=== PATIENT | female | born 1935 | race African-American/Black ===

== ENCOUNTER 2021-11-28 11:56 | Outpatient (CLI) | payer MEDICARE, MEDICAID ==
[2021-11-29 00:41] LABS: SARS-CoV-2 PCR by NAA Not Detected (NotDetected)
== END 2021-11-28 11:57 | disposition home or self-care (01) ==
LOC: CSHLAB 11:56
PROVIDERS: ATTEND Internal Medicine Gastroenterology
DX: Z20.822 Contact with and (suspected) exposure to COVID-19 (principal); K63.5 Polyp of colon
CPT/HCPCS: U0003; U0005

== ENCOUNTER 2021-12-01 08:34 | Day surgery (SDC) | payer MEDICARE, MEDICAID ==
[2021-12-01 08:45] VITALS: BMI 24.5
[2021-12-01] MEDS ORDERED: Lidocaine 1% MPF 2 ML VIAL ONE (08:59)
[2021-12-01] MEDS ORDERED: PROPOFOL 40 ML ONE (09:49)
[2021-12-01] MEDS ORDERED: Lidocaine 1% PF 5 ML VIAL ONE (10:12)
[2021-12-01] MEDS ORDERED: Lidocaine 2% MPF 10 ML AMP (For Epidural Use) ONE (10:12)
[2021-12-01] MEDS ORDERED: Glycopyrrolate 0.2 MG/ML 5 ML SYRINGE ONE (10:47)
== END 2021-12-01 11:06 | disposition home or self-care (01) ==
LOC: CSHSDC 08:34
PROVIDERS: ATTEND Internal Medicine Gastroenterology
PROC: 0DBH8ZZ Excision of Cecum, Via Natural or Artificial Opening Endoscopic (ICD-10-PCS; principal; 2021-12-01)
DX: Z12.11 Encounter for screening for malignant neoplasm of colon (principal); K63.5 Polyp of colon; K57.30 Diverticulosis of large intestine without perforation or abscess without bleeding; K64.9 Unspecified hemorrhoids; I10 Essential (primary) hypertension; E78.5 Hyperlipidemia, unspecified; E11.9 Type 2 diabetes mellitus without complications; E55.9 Vitamin D deficiency, unspecified
CPT/HCPCS: 88305; J2704